=== PATIENT | male | born 1980 | race Caucasian/White ===

== ENCOUNTER 2016-07-23 19:59 | Emergency (ER) | payer OTHER ==
[~2016-07-23] VITALS: Ht 177.8 cm; Wt 104.3 kg
[~2016-07-23 19:59] MED LIST: ACULAR 3 ML3 M1 OPH; CIPRO500 MG PO; FLAGYL500 MG PO; FLEXERIL5 MG PO; HYDROCODONE BIT1 T11 PO; MOTRIN800 MG PO; NKHM; Tobrex Ophth S2.5 ML OPH
[2016-07-23 20:41] LABS: BASO # 0.1 10*3/uL (0.0-0.1); BASO % 0.3 % (0.0-1.0); EOS # 0.2 10*3/uL (0.0-0.4); EOS % 0.9 % (1.0-4.0); HEMATOCRIT 40.3 % (42.0-52.0); HEMOGLOBIN 13.7 g/dl (14.0-18.0); IG # 0.1 10*3/uL (0.0-0.1); LYMPH # 1.5 10*3/uL (1.3-4.4); LYMPH % 8.6 % (27.0-41.0); MEAN CELL VOLUME 88.4 fl (80.0-94.0); MEAN PLATELET VOLUME 9.4 fl (9.6-12.3); MONO % 5.7 % (3.0-9.0); NEUT # 15.1 10*3/uL (2.3-7.9); NEUT % 84.1 % (47.0-73.0); PLATELET COUNT AUTOMATED 318 10*3/uL (130-400); RED BLOOD COUNT 4.56 10*6/uL (4.50-5.90); RED CELL DISTRI WIDTH 11.8 % (0-14.5)
[2016-07-23 20:56] LABS: ALBUMIN 4.2 gm/dl (3.1-4.5); ALKALINE PHOSPHATASE 64 U/L (45-117); BILIRUBIN, TOTAL 0.9 mg/dl (0.2-1.0); BUN 13 mg/dl (7-24); CARBON DIOXIDE 23 mmol/L (21-32); CHLORIDE 107 mmol/L (98-107); EST GLOM FILT AFRICAN AMERICAN > 60 ml/min; GLUCOSE 107 mg/dL (65-99); SGOT/AST 29 IU/L (3-35); SGPT/ALT 72 U/L (12-78); SODIUM 142 mmol/L (136-145); TOTAL PROTEIN 7.9 gm/dL (6.4-8.2)
[2016-07-23] MEDS ORDERED: PREDNISONE20 M1 PO (21:53)
[2016-07-23] MEDS ORDERED: PROAIR HFA8.5 GM INH (21:53)
[2016-07-23] MEDS ORDERED: ZITHROMAX250 MG PO (21:53)
== END 2016-07-23 21:59 | disposition home or self-care (01) ==
LOC: ED 19:59
PROVIDERS: Emergency Medicine Emergency Medical Services
DX: J20.9 Acute bronchitis, unspecified (principal); F17.200 Nicotine dependence, unspecified, uncomplicated

== ENCOUNTER → 2016-07-29 | Day surgery (SDC) | payer OTHER ==
[~2016-07-29] VITALS: Ht 177.8 cm; Wt 106.6 kg
[~2016-07-29] MED LIST changes: +PREDNISONE20 M1 PO; +PROAIR HFA8.5 GM INH; +ZITHROMAX250 MG PO
--- NOTE | ~2016-07-29 | PROC NOTE ---
[place], [place] PROCEDURE NOTE NAME: SONIA BISHOP [facility] #: [id number] UNIT #: [id number] ROOM: DOCTOR: BRAYAN NANCE MD BIRTHDATE: [birth year] DATE: 07/29/16 PREOPERATIVE DIAGNOSIS: Abdominal pain. POSTOPERATIVE DIAGNOSIS: Abdominal pain. PROCEDURE: Colonoscopy. ENDOSCOPIST: Brayan Nance MD. LEATHER GOODS MAKER: [id number]. ANESTHESIA: MAC. INDICATIONS: This is a 35-year-old male with a history of left lower quadrant abdominal pain, who is here for a colonoscopy. The procedure and its complications were explained to the patient in detail preoperatively. Complications that were discussed included but were not limited to colon perforation, missed lesions, and bleeding. He agreed to proceed. DESCRIPTION OF PROCEDURE: After identifying the patient, the patient was brought to the endoscopy suite and placed in the left lateral position. After IV sedation was administered, a timeout procedure was called. A digital rectal exam was performed, which was within normal limits. An adult colonoscope was now introduced into the anal canal and advanced sequentially into the rectum, sigmoid colon, descending colon, transverse colon, and ascending colon up to the cecum. Upon reaching the cecum, the scope was withdrawn. Total withdrawal time was 7 minutes and 55 seconds. Multiple areas poor or suboptimal prep were sucked away to visualize the mucosa. There were no obvious lesions identified. There was mild sigmoid diverticulosis. There were internal hemorrhoids upon retroflexion. The scope was withdrawn and the patient was taken to the recovery room in stable fashion. There were no complications. Dr. Brayan Nance, the attending endoscopist, was present throughout the operating case. BRAYAN NANCE MD CM:PROCNOTE:PROCEDURE NOTE [id number] BRAYAN NANCE MD
[2016-07-29 08:30] VITALS: BP 121/82
[2016-07-29 09:28] VITALS: BP 118/72
[2016-07-29 09:43] VITALS: BP 125/79
[2016-07-29 09:58] VITALS: BP 103/65
== END | disposition home or self-care (01) ==
LOC: SDC 07-26 04:34
DX: K57.30 Diverticulosis of large intestine without perforation or abscess without bleeding (principal); K64.8 Other hemorrhoids; F32.9 Major depressive disorder, single episode, unspecified; Z87.01 Personal history of pneumonia (recurrent); Z80.9 Family history of malignant neoplasm, unspecified; F17.210 Nicotine dependence, cigarettes, uncomplicated; J42 Unspecified chronic bronchitis

== ENCOUNTER 2019-01-15 04:18 | Inpatient (IN) | payer SELFPAY ==
[2019-01-15] VITALS (12 sets, daily range): BP systolic 95–132; BP diastolic 49–88
[~2019-01-15] VITALS: Ht 177.8 cm
[2019-01-15 05:14] LABS: HEMATOCRIT 38.8 % (42.0-52.0); HEMOGLOBIN 13.1 g/dl (14.0-18.0); MEAN CELL VOLUME 91.7 fl (80.0-94.0); MEAN CORPUSCULAR HGB CONC 33.8 g/dl (33.0-37.0); PLATELET COUNT AUTOMATED 286 10*3/uL (130-400); RED BLOOD COUNT 4.23 10*6/uL (4.50-5.90); RED CELL DISTRI WIDTH 11.9 % (0-14.5); WHITE BLOOD COUNT 18.2 10*3/uL (4.8-10.8)
[2019-01-15 05:15] LABS: LYMPH % 9.7 % (27.0-41.0); MEAN PLATELET VOLUME 9.6 fl (9.6-12.3); MONO % 5.5 % (3.0-9.0); NEUT % 83.5 % (47.0-73.0)
[2019-01-15 05:22] LABS: BASO # 0.1 10*3/uL (0.0-0.1); BASO % 0.3 % (0.0-1.0); EOS # 0.1 10*3/uL (0.0-0.4); EOS % 0.6 % (1.0-4.0); LYMPH # 1.8 10*3/uL (1.3-4.4); NEUT # 15.2 10*3/uL (2.3-7.9)
[2019-01-15 05:23] LABS: ALBUMIN 4.2 gm/dl (3.1-4.5); ALKALINE PHOSPHATASE 65 U/L (45-117); BUN 13 mg/dl (7-24); CHLORIDE 106 mmol/L (98-107); CREATININE 0.92 mg/dL (0.70-1.30); LIPASE 60 U/L (73-393); POTASSIUM 3.8 mmol/L (3.5-5.1); SGOT/AST 16 IU/L (3-35); SGPT/ALT 26 U/L (12-78); SODIUM 137 mmol/L (136-145); TOTAL PROTEIN 7.4 gm/dL (6.4-8.2)
--- NOTE | 2019-01-15 06:47 | NUR ---
PATIENT IN ROOM SLEEPING AT THIS TIME. EASILY AROUSED. RESP EASY AND NONLABORED. VOICES NO COMPLAINTS. RATES PAIN AT A 0/10.
--- NOTE | 2019-01-15 07:10 | NUR ---
PT REPORT RECIEVED FROM NISSAN SALES CONSULTANT RN. PT IS RESTING IN BED JUST CAME BACK FROM CT.
[2019-01-15 07:38] LABS: BILIRUBIN NEGATIVE (NEGATIVE); BLOOD NEGATIVE (NEGATIVE); CLARITY CLEAR (CLEAR); COLOR YELLOW (YELLOW); GLUCOSE NEGATIVE (NEGATIVE); KETONE NEGATIVE (NEGATIVE); LEUKO ESTERASE NEGATIVE (NEGATIVE); NITRITE NEGATIVE (NEGATIVE); UROBILINOGEN 0.2 E.U./dl (0.2-1.0)
[2019-01-15 07:48] LABS: WBC 0-2 wbc/hpf (0-5)
[2019-01-15 07:49] LABS: MUCOUS 1+
--- NOTE | 2019-01-15 08:24 | NUR ---
PT ASKED TO SMOKE PT ADVISED HE IS NOT ALLOWED AND OFFERED NICOTINE PACTH. HE DOES NOT WANT A NICOTINE PATCH. PT WALKED OUTSIDE AND HAS NOW RETURNED TO ROOM.
--- NOTE | 2019-01-15 08:45 | NUR ---
A 38, admitted to , under the services of PATRICK Reyes DO with a diagnosis of ACUTE APPENDICITIS. Chief complaint is RLQ PAIN AND NAUSEA. Patient arrived via bed from ER. Monitor applied. Initial assessment completed. Vital signs taken and recorded. PATRICK REYES DO notified of admission to the unit. Orders received. See assessment for past medical history, medications and allergies. Patient and/or family oriented to unit. [facility] visitation policy reviewed. Clothing/patient valuable form completed. MAMADOU FRENCH
--- NOTE | 2019-01-15 09:42 | NUR ---
CONSULT CALLED TO DR MURRY. PHYSICIAN STATES TO KEEP PATIENT NPO AND THAT HE WILL BE UP TO TALK TO HIM SOMETIME TODAY. WILL NOTIFY PATIENT.
--- NOTE | 2019-01-15 10:15 | NUR ---
SUNITHA FROM SURGERY CALLS AND STATES THAT SOMEONE FOR SURGERY WILL BE UP TO GET PATIENT AROUND 1100. PATIENT AND GIRLFRIEND NOTIFIED OF THIS.
--- NOTE | 2019-01-15 15:10 | NUR ---
PT RETURNS FROM SURGERY. ALERT ORIENTED AND APPROPRIATE/CLEAR SPEECH. PT DENIES ANY DISCOMFORT AT THIS TIME. VITALS WNL. RESPIRATIONS EASY AND UNLABORED ON ROOM AIR WITH NO S/S OF DISTRESS. PT STATES THAT HE WOULD LIKE TO GO HOME TODAY. WILL NOTIFY DRS OF THIS. IV ATRosanne LUX AT THIS TIME. PT FAMILY AT BEDSIDE. CALL LIGHT IN REACH.
--- NOTE | 2019-01-15 15:40 | NUR ---
ORDERS RECEIVED FROM DR MURRY THAT PT CAN HAVE A CLEAR LIQUID DIET. PHYSICIAN ALSO NOTIFIED THAT PT STATES THAT HE WANTS TO LEAVE TODAY. NO OTHER ORDERS RECEIVED AT THIS TIME.
--- NOTE | 2019-01-15 16:00 | NUR ---
NOTIFIED DR MURRY AND DR LANCASTER THAT PATIENT WANTS TO LEAVE TODAY AND STATES THAT HE IS LEAVING NO MATTER WHAT. BOTH PHYSICIANS DO NOT GIVE DISCHARGE ORDERS AND STATE THAT IF PT LEAVES, IT WILL HAVE TO BE AGAINST MEDICAL ADVICE. WILL NOTIFY PATIENT.
--- NOTE | 2019-01-15 16:28 | NUR ---
Patient signed out AMA. Patient encouraged to stay and advised of possible consequences of premature discharge. Physician DR LANCASTER AND DR MURRY and roustabout supervisor BAMBI VERA notified. Patient instructed what to do regarding care post-departure from the hospital; emergency phone numbers provided. Patent was accompanied by FAMILY. MAMADOU FRENCH
== END 2019-01-15 16:28 | disposition left against medical advice (07) | DRG 343 ==
LOC: ED 04:18 → 4E 08:17 → EDHOLD 08:17 → 4E 08:27
PROVIDERS: Emergency Medicine; ADMIT Internal Medicine
PROC: 0DTJ4ZZ Resection of Appendix, Percutaneous Endoscopic Approach (ICD-10-PCS; principal; 2019-01-15)
DX: K35.80 Unspecified acute appendicitis (principal); K57.90 Diverticulosis of intestine, part unspecified, without perforation or abscess without bleeding; F15.10 Other stimulant abuse, uncomplicated; R93.5 Abnormal findings on diagnostic imaging of other abdominal regions, including retroperitoneum; F17.210 Nicotine dependence, cigarettes, uncomplicated; D72.829 Elevated white blood cell count, unspecified; Z80.9 Family history of malignant neoplasm, unspecified; Z71.6 Tobacco abuse counseling

== ENCOUNTER 2019-01-31 19:34 | Emergency (ER) | payer MEDICAID ==
[~2019-01-31] VITALS: Ht 177.8 cm; Wt 90.7 kg
[2019-01-31] MEDS ORDERED: CEPHALEXIN500 M1 PO (19:49)
== END 2019-01-31 19:49 ==
LOC: ED 19:34
DX: L53.9 Erythematous condition, unspecified (principal); Z48.01 Encounter for change or removal of surgical wound dressing; F17.210 Nicotine dependence, cigarettes, uncomplicated

== ENCOUNTER 2020-05-02 17:04 | Emergency (ER) | payer OTHER, MEDICAID ==
[~2020-05-02] VITALS: Ht 177.8 cm; Wt 88.5 kg
[~2020-05-02 17:04] MED LIST changes: +CEPHALEXIN500 M1 PO
== END 2020-05-02 18:52 | disposition home or self-care (01) ==
LOC: ED 17:04
DX: S62.394A Other fracture of fourth metacarpal bone, right hand, initial encounter for closed fracture (principal); S62.396A Other fracture of fifth metacarpal bone, right hand, initial encounter for closed fracture; F15.10 Other stimulant abuse, uncomplicated; W22.8XXA Striking against or struck by other objects, initial encounter; Y93.89 Activity, other specified; Y92.89 Other specified places as the place of occurrence of the external cause; Y99.9 Unspecified external cause status

== ENCOUNTER 2020-10-10 15:27 | Emergency (ER) | payer OTHER ==
[~2020-10-10] VITALS: Ht 177.8 cm
[2020-10-10 16:38] LABS: BASO % 0.4 % (0.0-1.0); EOS % 0.1 % (1.0-4.0); HEMATOCRIT 41.7 % (42.0-52.0); LYMPH # 0.9 10*3/uL (1.3-4.4); LYMPH % 10.1 % (27.0-41.0); MEAN CELL VOLUME 89.1 fl (80.0-94.0); MEAN CORPUSCULAR HGB 29.7 pg (27.0-31.0); MEAN CORPUSCULAR HGB CONC 33.3 g/dl (33.0-37.0); MEAN PLATELET VOLUME 9.5 fl (9.6-12.3); MONO # 0.8 10*3/uL (0.1-1.0); MONO % 8.9 % (3.0-9.0); NEUT # 7.2 10*3/uL (2.3-7.9); NEUT % 80.3 % (47.0-73.0); PLATELET COUNT AUTOMATED 266 10*3/uL (130-400); RED BLOOD COUNT 4.68 10*6/uL (4.50-5.90)
[2020-10-10 16:56] LABS: ALBUMIN 4.6 gm/dl (3.1-4.5); ALKALINE PHOSPHATASE 74 U/L (45-117); BUN 19 mg/dl (7-24); CHLORIDE 109 mmol/L (98-107); CREATININE 1.43 mg/dL (0.70-1.30); LIPASE 58 U/L (73-393); POTASSIUM 4.6 mmol/L (3.5-5.1); SGOT/AST 22 IU/L (3-35); SGPT/ALT 31 U/L (12-78); SODIUM 137 mmol/L (136-145); TOTAL PROTEIN 8.1 gm/dL (6.4-8.2); TROPONIN I < 0.015 ng/ml (<0.045)
== END 2020-10-10 19:26 | disposition home or self-care (01) ==
LOC: ED 15:27
PROVIDERS: Emergency Medicine
DX: S82.62XA Displaced fracture of lateral malleolus of left fibula, initial encounter for closed fracture (principal); E86.0 Dehydration; F17.210 Nicotine dependence, cigarettes, uncomplicated; X50.1XXA Overexertion from prolonged static or awkward postures, initial encounter; Y93.01 Activity, walking, marching and hiking; Y92.89 Other specified places as the place of occurrence of the external cause; Y99.8 Other external cause status

== ENCOUNTER 2022-05-09 03:39 | Emergency (ER) | payer OTHER ==
[~2022-05-09] VITALS: Ht 177.8 cm; Wt 81.6 kg
[2022-05-09] MEDS ORDERED: PREDNISONE20 M1 PO (03:54)
== END 2022-05-09 04:04 | disposition home or self-care (01) ==
LOC: ED 03:39
DX: L50.9 Urticaria, unspecified (principal); L29.9 Pruritus, unspecified; F17.210 Nicotine dependence, cigarettes, uncomplicated